=== PATIENT | female | born 1970 | race African-American/Black ===

== ENCOUNTER 2017-01-30 12:39 | Emergency (ER) | payer SELFPAY ==
[2017-01-30 12:14] VITALS: BMI 44.2
--- NOTE | 2017-01-30 12:25 | DR.GENAD ---
HPI - PCP Primary Care Physician: SEBASTIÁN - HPI Comment HPI Comment: PATIENT PREVIOUSLY ON BP MED. HAVE NOT TAKEN MED FOR ONE MONTH. BP ELEVATED TODAY IN ED. HAD MED FOR ALLERGIC REACTION LAST NIGHT. HAVING HEADACHE CURRENTLY. - Complaint/Symptoms Chief Complaint Doctors Comments: EDEMA, HTN TIMES ONE MONTH. TREATED FOR ALLERGIC REACTION LAST NIGHT. Chief Complaint:: PATIENT HAS BEEN SWELLING IN HER LOWER LEGS FOR A MONTH AND HAVING HIGH BLOOD PRESSURE. HAS NOT TAKEN ANY BP MEDS SINCE NOVEMBER. WENT TO THE ER LAST NIGHT FOR A ALLERGIXC REACTION. - Nurses notes reviewed Nurses Notes Review: Yes - Source History Provided: Patient - Mode of Arrival Mode of Arrival: Ambulatory - Timing Onset of Chief Complaint: 01/05/17 Came on: Gradually - Duration Duration: Constant Duration: Days - Severity Severity: Moderate PMH - PMH Past Medical History: Yes Past Medical History: Hypertension Past Surgical History: Yes Surgical History: Hysterectomy - Family History History of Family Medical Conditions: Yes Family Medical History: Heart Failure, Hypertension - Social History Does patient currently use any type of tobacco product: No Have you used tobacco products in the last 12 months: No Type of Tobacco Use: None Does any household member use tobacco: No Alcohol Use: None Do you use any recreational Drugs:: No Lives With: Family Lives Where: Home - infectious screening In the last 2 months have you had wt loss of >10#?: NO Have you had fever, night sweats or hemotysis?: No Have you traveled outside the country in the last 6 months?: No Isolation: Standard ROS - Review of Systems Constitutional: No Symptoms Reported Eyes: No Symptoms Reported ENTM: No Symptoms Reported Respiratoy: No Symptoms Reported Cardiovascular: Edema, Other (ELEVATED BP ) Gastrointestinal/Abdominal: No Symptoms Reported Genitourinary: No Symptoms Reported Neurological: No Symptoms Reported Musculoskeletal: No Symptoms Reported Integumentary: No Symptoms Reported Hematologic/Lymphatic: No Symptoms Reported Endocrine: No Symptoms Reported All Other Systems: Reviewed and Negative PE - Vital Signs Vitals: Temperature 98.9 F Pulse Rate [Left Brachial] 90 Pulse Rate 87 Respiratory Rate 16 Blood Pressure [Left Arm] 166/91 Blood Pressure 212/115 O2 Sat by Pulse Oximetry 100 - General Limitations: No Limitations General Appearance: Alert - Head Head Exam: Normal Inspection - Eyes Eye exam: Normal Appearance - ENT ENT Exam: Normal External Ear Exam External Ear Exam: Normal External Inspection TM/Canal Exam: Bilateral Normal Nose Exam: Normal Nose Exam Mouth Exam: Normal Inspection Throat Exam: Normal Inspection - Neck Neck Exam: Trachea Midline - Chest Chest Inspection: Symmetric Chest Wall Rise - Respiratory Respiratory Exam: Normal Lung Sounds Bilat Respiratory Exam: Bilateral Clear to Auscultation - Cardiovascular Cardiovascular Exam: Regular Rate, Normal Rhythm, Normal Heart Sounds - Abdominal Exam Abdominal Exam: Normal Bowel Sounds, Soft. negative: Tenderness - Extremities Extremities Exam: Edema - Back Back Exam: Normal Inspection - Neurologic Neurological Exam: Alert, Oriented X3 - Psychiatric Psychiatric Exam: Normal Affect, Normal Mood - Skin Skin Exam: Erythema MDM - Differential Diagnosis Differential Diagnosis: HYPERTENSION, FEVER Course - Treatment Treatment: SEE ODERS - Education/Counseling Education/Counseling: Patient, Education Educated On: Diagnosis, Needs for Follow Up ROR - Labs Reviewed Laboratory Results Reviewed?: Yes Result Diagrams: 01/30/17 12:55 01/30/17 12:55 Laboratory: WBC 7.5 X10^3/uL (3.6-10.0) 01/30/17 12:55 RBC 4.69 X10^6/uL (3.5-5.4) 01/30/17 12:55 Hgb 11.8 g/dL (12.0-16.0) L 01/30/17 12:55 Hct 35.6 % (36.0-47.0) L 01/30/17 12:55 MCV 75.9 fL (80.0-100.0) L 01/30/17 12:55 MCH 25.0 pg (27.0-34.0) L 01/30/17 12:55 MCHC 33.0 g/dL (33.0-35.0) 01/30/17 12:55 RDW 14.4 % (11.6-16.5) 01/30/17 12:55 Plt Count 300 X10^3/uL (150.0-450.0) 01/30/17 12:55 Plt Count Comment Adequate (ADEQUATE) 01/30/17 12:55 MPV 8.3 fL (7.4-11.0) 01/30/17 12:55 Neut % 91.0 % (42.0-75.0) H 01/30/17 12:55 Lymph % 7.6 % (21.0-51.0) L 01/30/17 12:55 Dolores % 0.8 % (0.0-13.0) 01/30/17 12:55 Eos % 0.0 % (0.9-2.9) L 01/30/17 12:55 Baso % 0.6 % (0.2-1.0) 01/30/17 12:55 Neut # 6.8 x10^3/uL (2.2-4.8) H 01/30/17 12:55 Lymph # 0.6 X10^3/uL (1.3-2.9) L 01/30/17 12:55 Dolores # 0.1 x10^3/uL (0.3-0.8) L 01/30/17 12:55 Eos # 0.0 x10^3/uL (0.0-0.2) 01/30/17 12:55 Baso # 0.0 X10^3/uL (0.0-0.1) 01/30/17 12:55 Absolute Nucleated RBC 0.0 /100WBC 01/30/17 12:55 Total Counted 100 01/30/17 12:55 Neutrophils % (Manual) 97 % (39-76) H 01/30/17 12:55 Lymphocytes % (Manual) 3 % (13-43) L 01/30/17 12:55 Plt Morphology Comment Normal (NORMAL) 01/30/17 12:55 RBC Morphology Normal (NORMAL) 01/30/17 12:55 Sodium 138 mmol/L (136-145) 01/30/17 12:55 Corrected Sodium 138 mmol/L (136-145) 01/30/17 12:55 Potassium 4.2 mmol/L (3.5-5.1) 01/30/17 12:55 Chloride 104 mmol/L (98-107) 01/30/17 12:55 Carbon Dioxide 26.6 mmol/L (21-32) 01/30/17 12:55 BUN 13 mg/dL (7-18) 01/30/17 12:55 Creatinine 0.79 mg/dL (0.55-1.02) 01/30/17 12:55 Est GFR (MDRD) Af Amer > 60 (>60) 01/30/17 12:55 Est GFR (MDRD) Non-Af > 60 (>60) 01/30/17 12:55 Glucose 118 mg/dL (65-99) H 01/30/17 12:55 Calcium 9.0 mg/dL (8.5-10.1) 01/30/17 12:55 Corrected Calcium TNP 01/30/17 12:55 Total Bilirubin 0.50 mg/dL (0.2-1.0) 01/30/17 12:55 AST 17 Units/L (15-37) 01/30/17 12:55 ALT 22 Units/L (12-78) 01/30/17 12:55 Alkaline Phosphatase 65 Units/L (46-116) 01/30/17 12:55 Creatine Kinase 167 Units/L (26-192) 01/30/17 12:55 CK-MB (CK-2) 1.0 ng/mL (0-4.0) 01/30/17 12:55 CK/CKMB % Calc 0.6 % (<4) 01/30/17 12:55 Troponin I < 0.02 ng/mL (0-1.5) 01/30/17 12:55 B-Natriuretic Peptide 32.1 pg/mL (0-79) 01/30/17 12:55 Total Protein 7.9 g/dL (6.4-8.2) 01/30/17 12:55 Albumin 3.6 g/dL (3.4-5.0) 01/30/17 12:55 Globulin 4.3 g/dL (2.5-4.5) 01/30/17 12:55 Albumin/Globulin Ratio 0.8 Ratio (1.1-2.1) L 01/30/17 12:55 - Diagnosis Discharge Problem: Hypertension Qualifiers: Hypertension type: unspecified Qualified Code(s): I10 - Essential (primary) hypertension Edema Qualifiers: Edema type: unspecified Qualified Code(s): R60.9 - Edema, unspecified - Discharge Plan Disposition: 01 HOME, SELF-CARE Condition: Stable Prescriptions: Amlodipine Besylate [NORVASC 10 MG *] 10 mg PO DAILY #30 tab Triamterene/Hydrochlorothiazid [Triamterene/Hydrochloroth 37.5-25 mg] 1 tab PO QAM #30 tab - Follow ups/Referrals Follow ups/Referrals: [facility],None [Primary Care Provider] - 02/01/17 - Instructions Instructions: Hypertension, [id number], Edema, [id number] Additional Instructions: RETURN TO ED IF WORSE. BLOOD PRESSURE CHECK DAILY, CHART AND TAKE TO YOUR DOCTORS DURING FOLLOW UP VISIT.
[2017-01-30 13:14] LABS: BASOPHILS % (AUTO) 0.6 % (0.2-1.0); HEMATOCRIT 35.6 % (36.0-47.0); HEMOGLOBIN 11.8 g/dL (12.0-16.0); LYMPHOCYTES # (AUTO) 0.6 X10^3/uL (1.3-2.9); LYMPHOCYTES % (AUTO) 7.6 % (21.0-51.0); MEAN CORPUSCULAR VOLUME 75.9 fL (80.0-100.0); MEAN PLATELET VOLUME 8.3 fL (7.4-11.0); MONOCYTES # (AUTO) 0.1 x10^3/uL (0.3-0.8); MONOCYTES % (AUTO) 0.8 % (0.0-13.0); NEUTROPHILS # (AUTO) 6.8 x10^3/uL (2.2-4.8); PLATELET COUNT 300 X10^3/uL (150.0-450.0); RED BLOOD COUNT 4.69 X10^6/uL (3.5-5.4); RED CELL DISTRIBUTION WIDTH 14.4 % (11.6-16.5); WHITE BLOOD COUNT 7.5 X10^3/uL (3.6-10.0)
[2017-01-30 13:26] LABS: PLATELET MORPHOLOGY COMMENT NORMAL (NORMAL)
[2017-01-30 13:35] LABS: B-TYPE NATRIURETIC PEPTIDE 32.1 pg/mL (0-79)
[2017-01-30 13:56] LABS: BLOOD UREA NITROGEN 13 mg/dL (7-18); CARBON DIOXIDE 26.6 mmol/L (21-32); CHLORIDE 104 mmol/L (98-107); COR NA(FOR HYPERGLY) 138 mmol/L (136-145); CREATININE 0.79 mg/dL (0.55-1.02); GLUCOSE 118 mg/dL (65-99); SODIUM 138 mmol/L (136-145); TROPONIN I < 0.02 ng/mL (0-1.5); eGFR BLACK RACES > 60 (>60); eGFR NON BLACK RACES > 60 (>60)
[2017-01-30 14:00] LABS: ALANINE AMINOTRANSFERASE 22 Units/L (12-78); ALBUMIN 3.6 g/dL (3.4-5.0); ALKALINE PHOSPHATASE 65 Units/L (46-116); ASPARTATE AMINO TRANSFERASE 17 Units/L (15-37); CKMB % 0.6 % (<4); CREATINE KINASE 167 Units/L (26-192); TOTAL PROTEIN 7.9 g/dL (6.4-8.2)
[2017-01-30] MEDS ORDERED: NIFEDIPINE CAP 10 MG PO ONE (14:22)
[2017-01-30 16:40] VITALS: BP 166/91
[2017-01-31] MEDS ORDERED: ALDACTONE TAB 25 MG PO ONE (13:20)
[2017-01-31] MEDS ORDERED: NORVASC TAB 10 MG PO ONE (13:20)
== END 2017-01-30 16:39 | disposition home or self-care (01) ==
LOC: ER 12:39
DX: I10 Essential (primary) hypertension (principal); R60.9 Edema, unspecified; M79.89 Other specified soft tissue disorders
CPT/HCPCS: 36415; 80053; 82550; 82553; 83880; 84484; 85025; 93005; 93010; 99283